=== PATIENT | male | born 2005 | race Caucasian/White ===

== ENCOUNTER 2024-02-08 17:37 | Emergency (ER) | payer SELFPAY ==
[~2024-02-08] VITALS: Ht 167.6 cm; Wt 72.6 kg
[2024-02-08 18:11] VITALS: BP 125/85; PULSE 83; RESP 18; TEMP 98; O2SAT 100
[2024-02-08] MEDS ORDERED: OFLO5SOL27 RIGHT EAR (19:00)
[2024-02-08] MEDS ORDERED: CARB15DR61 OT (19:00)
== END 2024-02-08 19:14 | disposition home or self-care (01) ==
LOC: MED 17:37
DX: H60.91 Unspecified otitis externa, right ear (principal); Z79.899 Other long term (current) drug therapy
CPT/HCPCS: 99283